=== PATIENT | female | born 1960 | race Caucasian/White ===

== ENCOUNTER → 2017-03-26 | Outpatient (CLI) | payer OTHER ==
[~2017-03-26] MED LIST: ESTR0.5T PO; MEDR5TAB2 PO; MULT-658 PO
== END ==
LOC: STAR 15:28
PROVIDERS: ATTEND Surgery
DX: Z02.9 Encounter for administrative examinations, unspecified (principal)

== ENCOUNTER 2017-03-30 07:14 | Day surgery (SDC) | payer OTHER ==
[~2017-03-30] VITALS: Ht 175.3 cm; Wt 101.6 kg
[2017-03-30] MEDS ORDERED: LACTATED RINGERS 1,000 ML IV SCH (07:33)
[2017-03-30 07:36] VITALS: BP 125/91
[2017-03-30] MEDS ORDERED: EPINEPHRINE 1 MG/ML, 1ML ONE (08:54)
[2017-03-30] MEDS ORDERED: BUPIVACAINE/PF 0.5% ONE (08:54)
[2017-03-30] MEDS ORDERED: PROPOFOL 10 MG/ML, 20ML ONE (09:00)
[2017-03-30] MEDS ORDERED: ROCURONIUM 10MG/ML,5ML ONE (09:00)
[2017-03-30] MEDS ORDERED: MIDAZOLAM 1 MG/ML, 2ML ONE (09:00)
[2017-03-30] MEDS ORDERED: FENTANYL PF 100 MCG/2ML ONE ×5 (09:00→11:50)
[2017-03-30] MEDS ORDERED: SUCCINYLCHOLINE 20 MG/ML, 10ML ONE (09:00)
[2017-03-30] MEDS ORDERED: DEXAMETHASONE 4 MG/ML, 1ML ONE ×2 (09:01)
[2017-03-30] MEDS ORDERED: ONDANSETRON 2MG/ML, 2ML ONE ×2 (09:01)
[2017-03-30] MEDS ORDERED: PHENYLEPHRINE 10 MG/ML ONE (09:10)
[2017-03-30] MEDS ORDERED: CEFAZOLIN 1,000 MG ONE (09:15)
[2017-03-30] MEDS ORDERED: ONDANSETRON 2MG/ML, 2ML IVPush PRN (09:30)
[2017-03-30] MEDS ORDERED: MEPERIDINE/PF 25MG/0.5ML IVPush PRN (09:30)
[2017-03-30] MEDS ORDERED: LABETALOL 5MG/ML, 20ML IV PRN (09:30)
[2017-03-30] MEDS ORDERED: MIDAZOLAM 1 MG/ML, 2ML IV PRN (09:30)
[2017-03-30] MEDS ORDERED: OXYcodone 5 MG/5 ML ORAL.SOL UDC PO PRN (09:30)
[2017-03-30] MEDS ORDERED: hydrALAzine 20 MG/ML, 1ML IV PRN (09:30)
[2017-03-30] MEDS ORDERED: ALBUTEROL SULFATE 2.5 MG/3 ML NPPB PRN (09:30)
[2017-03-30] MEDS ORDERED: PROMETHAZINE 25 MG/ML, 1ML IV PRN (09:30)
[2017-03-30] MEDS ORDERED: HYDROmorphone 1 MG/ML, 1ML IV PRN (09:30)
[2017-03-30] MEDS ORDERED: ACETAMINOPHEN 325 MG TABLET PO PRN (09:30)
[2017-03-30] MEDS ORDERED: KETOROLAC 30 MG/1 ML ONE (09:51)
[2017-03-30] MEDS ORDERED: BUPIVACAINE/PF 0.5% INFIL ONE (10:05)
[2017-03-30] MEDS ORDERED: EPINEPHRINE 1 MG/ML, 1ML INFIL ONE (10:06)
[2017-03-30] MEDS ORDERED: LIDOCAINE-MPF 2% ,5ML ONE (10:31)
[2017-03-30] MEDS ORDERED: GLYCOPYRROLATE 0.4 MG/2 ML, 2ML ONE (10:42)
[2017-03-30] MEDS ORDERED: NEOSTIGMINE 1 MG/ML, 10ML ONE (10:42)
[2017-03-30] MEDS ORDERED: ACETAMINOPHEN 650 MG/20.3 ML UDC ONE (11:03)
[2017-03-30] MEDS ORDERED: OXYcodone 5 MG/5 ML ORAL.SOL UDC ONE ×2 (11:04→11:24)
[2017-03-30] MEDS: FENTANYL PF 100 MCG/2ML IV PRN ×5 (11:05→12:00)
[2017-03-30] MEDS ORDERED: MEPERIDINE/PF 25MG/0.5ML ONE (11:24)
== END 2017-03-30 13:30 ==
LOC: OUT 07:14
PROVIDERS: ATTEND Surgery
DX: T85.898A Other specified complication of other internal prosthetic devices, implants and grafts, initial encounter (principal); Y83.8 Other surgical procedures as the cause of abnormal reaction of the patient, or of later complication, without mention of misadventure at the time of the procedure; Y92.89 Other specified places as the place of occurrence of the external cause; E66.9 Obesity, unspecified; Z68.33 Body mass index [BMI] 33.0-33.9, adult; Z98.890 Other specified postprocedural states; Z88.1 Allergy status to other antibiotic agents; Z72.89 Other problems related to lifestyle; Z87.891 Personal history of nicotine dependence
CPT/HCPCS: 43774; J0171; J0330; J0690; J1100; J1885; J2175; J2250; J2370; J2405; J2704; J2710; J3010; J3490; J7120